=== PATIENT | female | born 1995 | race African-American/Black ===

== ENCOUNTER 2019-02-15 15:03 | Emergency (ER) | payer OTHER ==
[~2019-02-15] VITALS: Ht 167.6 cm; Wt 55.8 kg
[2019-02-15 15:04] VITALS: BP 140/94
[2019-02-15] MEDS ORDERED: MOBIC7.5 MG PO (15:50)
--- NOTE | 2019-02-15 18:08 | EKG ---
[address] [address] [place] [address] ELECTROCARDIOGRAM REPORT Name: BAMBI MARQUES Room #: DEP [id number] ������������������ Admission: 02/15/19 ������������������ Attend Phys: Discharge: 02/15/19 ������������������ Date of : 89 Report #: [id number] ����������������������������������������������������������������� [id number] THIS REPORT FOR: //name// [facility] ED Test Date: 2019-02-15 Test Time: 15:16:52 Pat Name: BAMBI MARQUES Department: Room: Gender: F [employer]: JEANCARLOS : 1995 Requested By: Kayy Jefferson Order Number: [id number] MD: Surinder Don Measurements Intervals [place] Rate: 89 P: 51 VA: 118 QRS: 31 QRSD: 82 T: 44 QT: 357 QTc: 435 Interpretive Statements Sinus rhythm Borderline short VA interval ST elev, probable normal early repol pattern No previous ECG available for comparison Electronically Signed On 02-15-2019 18:08:06 CDT by Surinder Don [email or web address] ��������������������������������������������� <ELECTRONICALLY SIGNED> ���������������������������������������� By: Surinder Don MD, [facility] ��������������������������������������������� 02/15/19 1808 1516 1516 Surinder Don MD, FACC /EPI
== END 2019-02-15 16:00 | disposition home or self-care (01) ==
LOC: ER 15:03
DX: R07.89 Other chest pain (principal); F17.210 Nicotine dependence, cigarettes, uncomplicated; F41.9 Anxiety disorder, unspecified